=== PATIENT | female | born 1990 | race Caucasian/White ===

== ENCOUNTER 2017-05-10 14:57 | Emergency (ER) | payer BC, SELFPAY ==
[2017-05-10 15:17] VITALS: BP 127/93; PULSE 82; RESP 20; TEMP 37.2; O2SAT 98; BMI 33.2
--- NOTE | 2017-05-10 15:20 | HMH.EDUTC ---
[facility] [place] Impression: Left otitis media Qualifiers: Otitis media type: suppurative Chronicity: acute Recurrence: not specified as recurrent Spontaneous tympanic membrane rupture: without spontaneous rupture Qualified Code(s): H66.002 - Acute suppurative otitis media without spontaneous rupture of ear drum, left ear Disposition: Home, Self-Care Condition on Discharge: Good Instructions: DI for Otitis Media (Middle Ear Infection)-Child Prescriptions: Amoxicillin/Potassium Clav [Augmentin 875-125 Tablet] 1 tab PO Q12H 10 Days #20 tab Referrals: Leatha Davis APRN [Primary Care Provider] - Time of Disposition: 15:23 Medical Decision Making - Sree Inquiry Pt receiving controlled substance: No - Lab Data Lab results reviewed: Yes: I reviewed the patient's lab results. [facility] [place] General Stated complaint: Soar Throat; Cough; Fever Time Seen by Provider: 05/10/17 15:21 - History of Present Illness Provider Complaint: Sore throat, ear pain, sinus pain and pressure, productive cough X 3-4 days. No fever. No vomiting or diarrhea. Onset (ago): day(s) (4) Location: face Relieving factors: none Exacerbating factors: none Associated symptoms: cough Treatments prior to arrival: none - Related Data Previous Rx's Medication Instructions Recorded Amoxicillin/Potassium Clav 1 tab PO Q12H 10 Days #20 tab 05/10/17 [Augmentin 875-125 Tablet] Allergies Allergy/AdvReac Type Severity Reaction Status Date / Time No Known Drug Allergies Allergy Unknown Unverified 01/28/17 14:55 [NKDA] [facility] History I have reviewed the patient's past medical history: Yes ROS Obtained: Yes All systems reviewed & no additional complaints - Constitutional Constitutional: Denies body ache, Denies chills, Reports fatigue, Denies fever(s), Reports malaise - ENT Ears, Nose, Mouth, and Throat: Reports otalgia, Reports facial pain, Reports nasal congestion, Reports sinus pressure, Reports sore throat - Respiratory Respiratory: Yes cough Physical Exam - General General appearance: alert, in no apparent distress - Head Head exam: atraumatic, normocephalic, normal inspection - Eye Eye exam: Present: normal appearance, PERRL, EOMI - ENT ENT exam: Present: normal exam, normal oropharynx, mucous membranes moist, normal external ear exam - Expanded ENT Exam TM/Canal exam: Right TM: erythema, bulging Nose exam: Present: sinus tenderness Throat exam: Present: tonsillar erythema - Neck Neck exam: Present: normal inspection, full ROM, trachea midline. Absent: meningismus, lymphadenopathy - Chest Chest inspection: Present: normal inspection, symmetric chest wall rise. Absent: tenderness - Respiratory Respiratory exam: Present: normal lung sounds bilaterally. Absent: respiratory distress - Cardiovascular Cardiovascular exam: Present: regular rate, normal rhythm. Absent: JVD - Abdominal Exam Abdominal exam: Present: soft, normal bowel sounds. Absent: distention, tenderness, guarding - Extremities Exam Extremities exam: Present: normal inspection, full ROM, normal capillary refill. Absent: calf tenderness - Back Exam Back exam: Present: normal inspection. Absent: tenderness - Neurological Exam Neurological exam: Present: alert, oriented X3 - Psychiatric Psychiatric exam: Present: normal affect, normal mood - Skin Skin exam: Present: warm, dry, intact, normal color - Lymphatic Lymphatic Findings: no adenopathy
--- NOTE | 2017-05-10 15:24 | ED_ITS ---
[facility] [place] Clinical Impression: Left otitis media Qualifiers: Otitis media type: suppurative Chronicity: acute Recurrence: not specified as recurrent Spontaneous tympanic membrane rupture: without spontaneous rupture Qualified Code(s): H66.002 - Acute suppurative otitis media without spontaneous rupture of ear drum, left ear Disposition: Home, Self-Care Condition on Discharge: Good Instructions: DI for Otitis Media (Middle Ear Infection)-Child Prescriptions: Amoxicillin/Potassium Clav [Augmentin 875-125 Tablet] 1 tab PO Q12H 10 Days #20 tab Referrals: Leatha Davis APRN [Primary Care Provider] - Time of Disposition: 15:23 Medical Decision Making - Sree Inquiry Pt receiving controlled substance: No - Lab Data Lab results reviewed: Yes: I reviewed the patient's lab results. [facility] [place] - General Stated complaint: Soar Throat; Cough; Fever Time Seen by Provider: 05/10/17 15:21 - History of Present Illness Provider Complaint: Sore throat, ear pain, sinus pain and pressure, productive cough X 3-4 days. No fever. No vomiting or diarrhea. Onset (ago): day(s) (4) Location: face Relieving factors: none Exacerbating factors: none Associated symptoms: cough Treatments prior to arrival: none - Related Data Previous Rx's Medication Instructions Recorded Amoxicillin/Potassium Clav 1 tab PO Q12H 10 Days #20 tab 05/10/17 [Augmentin 875-125 Tablet] Allergies Allergy/AdvReac Type Severity Reaction Status Date / Time No Known Drug Allergies Allergy Unknown Unverified 01/28/17 14:55 [NKDA] [facility] History I have reviewed the patient's past medical history: Yes ROS Obtained: Yes All systems reviewed & no additional complaints - Constitutional Constitutional: Denies body ache, Denies chills, Reports fatigue, Denies fever(s ), Reports malaise - ENT Ears, Nose, Mouth, and Throat: Reports otalgia, Reports facial pain, Reports nasal congestion, Reports sinus pressure, Reports sore throat - Respiratory Respiratory: Yes cough Physical Exam - General General appearance: alert, in no apparent distress - Head Head exam: atraumatic, normocephalic, normal inspection - Eye Eye exam: Present: normal appearance, PERRL, EOMI - ENT ENT exam: Present: normal exam, normal oropharynx, mucous membranes moist, normal external ear exam - Expanded ENT Exam TM/Canal exam: Right TM: erythema, bulging Nose exam: Present: sinus tenderness Throat exam: Present: tonsillar erythema - Neck Neck exam: Present: normal inspection, full ROM, trachea midline. Absent: meningismus, lymphadenopathy - Chest Chest inspection: Present: normal inspection, symmetric chest wall rise. Absent : tenderness - Respiratory Respiratory exam: Present: normal lung sounds bilaterally. Absent: respiratory distress - Cardiovascular Cardiovascular exam: Present: regular rate, normal rhythm. Absent: JVD - Abdominal Exam Abdominal exam: Present: soft, normal bowel sounds. Absent: distention, tenderness, guarding - Extremities Exam Extremities exam: Present: normal inspection, full ROM, normal capillary refill. Absent: calf tenderness - Back Exam Back exam: Present: normal inspection. Absent: tenderness - Neurological Exam Neurological exam: Present: alert, oriented X3 - Psychiatric Psychiatric exam: Present: normal affect, normal mood - Skin Skin exam: Prese
[2017-05-10 15:30] LABS: UTC Strep Screen (Rapid) Negative (Negative)
[2017-05-10 15:41] VITALS: BP 122/85; PULSE 75; RESP 18; TEMP 37.3; O2SAT 100
== END 2017-05-10 15:42 | disposition home or self-care (01) ==
PROVIDERS: Emergency Provider Physician Assistant; Family Provider Nurse Practitioner Family; PCP Nurse Practitioner Family
DX: H66.002 Acute suppurative otitis media without spontaneous rupture of ear drum, left ear (principal)
CPT/HCPCS: 87880; 99201

== ENCOUNTER → 2017-08-28 07:32 | Outpatient (CLI) | payer BC, SELFPAY ==
--- NOTE | 2017-08-28 07:49 | US_ITS ---
US abdomen complete COMPARISON: None HISTORY: Right upper quadrant pain nausea and vomiting for 2 months TECHNIQUE: Ultrasound scanning of the upper abdomen FINDINGS: The pancreas appears normal. The liver is normal size and liver parenchyma appears normal. The gallbladder is markedly abnormal with a diffusely thickened wall and multiple too numerous to count calcified and partially calcified gallstones. This prominent acoustic shadowing beneath the gallbladder. The gallbladder wall measures point 0.42 to 0.62c m in thickness. Common bile duct is normal caliber. The spleen is normal. The right kidney measures 8.7 x 4.0 x 5.0 cm and appears sonographically normal. The left kidney measures 9.0 x 4.8 x 6.1 cm. Left kidney appears sonographically normal as well. IMPRESSION: Obvious cholelithiasis and there is likely some degree of acute and/or chronic cholecystitis. No other significant abnormality noted
[2017-08-28 08:05] LABS: Basophils # 0.1 K/mm3 (0-0.2); Basophils % 0.7 % (0.1-2.0); Eosinophils # 0.2 K/mm3 (0.0-0.4); Eosinophils % 2.2 % (0.1-12.0); Hematocrit 41.8 % (37.0-47.0); Lymphocytes # 3.7 K/mm3 (0.7-4.5); Lymphocytes % 43.6 K/mm3 (10-50); Mean Corpuscular Hemoglobin 25.2 pg (27.0-31.2); Mean Corpuscular Volume 81.4 fl (81-99); Mean Platelet Volume 7.7 fl (7.4-10.4); Monocytes # 0.4 K/mm3 (0.1-1.0); Monocytes % 5.1 % (1.7-9.3); Neutrophils # 4.1 K/mm3 (1.8-7.8); Neutrophils % 48.5 % (37.0-80.0); Platelet Count 430 K/mm3 (142-424); Red Blood Count 5.14 M/mm3 (4.20-5.40); Red Cell Distribution Width 14.9 % (11.5-17.5); White Blood Count 8.5 K/mm3 (4.8-10.8)
[2017-08-28 09:40] LABS: Alanine Aminotransferase 33 U/L (12-78); Albumin Level 3.7 gm/dL (3.4-5.0); Albumin/Globulin Ratio 1.1 (1.1-1.8); Alkaline Phosphatase 121 U/L (46-116); Amylase 35 U/L (25-125); Anion Gap 12.3 mEq/L (5-15); Aspartate Amino Transferase 16 U/L (15-37); Bilirubin,Total 0.3 mg/dL (0.2-1.0); Blood Urea Nitrogen 11 mg/dL (7-18); Calcium 9.3 mg/dL (8.5-10.1); Carbon Dioxide 26 mmol/L (21.0-32.0); Chloride 105 mmol/L (98-107); Creatinine,Serum 0.71 mg/dL (0.55-1.02); Estimated Glomerular Filt Rate 100 ml/min (>60); GFR (African American) 120 ML/MIN (>60); Globulin 3.5 gm/dl (1.3-3.2); Glucose 85 mg/dL (74-106); Lipase 143 u/L (73-393); Potassium 4.3 mmoL/L (3.5-5.1); Sodium 139 mmol/L (136-145); Total Protein,Serum 7.2 gm/dL (6.4-8.2)
== END ==
PROVIDERS: Family Provider Nurse Practitioner Family; PCP Nurse Practitioner Family; Visit Provider Nurse Practitioner Family
DX: R10.84 Generalized abdominal pain (principal)
CPT/HCPCS: 36415; 76700; 80053; 82150; 83690; 85025

== ENCOUNTER → 2017-09-25 14:16 | Outpatient (CLI) | payer BC, SELFPAY ==
[2017-09-25 15:22] LABS: HCG Qualitative, Serum Negative (Negative)
[2017-09-25 15:24] LABS: Alanine Aminotransferase 34 U/L (12-78); Albumin Level 3.4 gm/dL (3.4-5.0); Alkaline Phosphatase 114 U/L (46-116); Aspartate Amino Transferase 14 U/L (15-37); Bilirubin,Direct 0.1 mg/dL (0.0-0.2); Bilirubin,Indirect 0.1 mg/dL (0.0-0.9); Bilirubin,Total 0.2 mg/dL (0.2-1.0); Total Protein,Serum 6.7 gm/dL (6.4-8.2)
== END ==
PROVIDERS: Visit Provider Surgery
DX: Z01.818 Encounter for other preprocedural examination (principal); K80.10 Calculus of gallbladder with chronic cholecystitis without obstruction
CPT/HCPCS: 36415; 80076; 84703

== ENCOUNTER 2020-01-24 11:00 | Outpatient (RCR) | payer OTHER, SELFPAY | END 2020-01-26 12:00 | disposition home or self-care (01) | LOC: PT.CARL 11:00 | PROVIDERS: PCP Nurse Practitioner Family; Visit Provider Orthopaedic Surgery Foot and Ankle Surgery | DX: M25.571 Pain in right ankle and joints of right foot (principal) | CPT/HCPCS: 97010; 97014; 97110; 97112; 97116; 97140; 97163; 97164; G0283 ==

== ENCOUNTER → 2021-08-03 10:14 | Outpatient (CLI) | payer OTHER, SELFPAY ==
[2021-08-03 10:49] LABS: Basophils # 0.2 K/mm3 (0-0.2); Basophils % 2.3 % (0.1-2.0); Eosinophils # 0.1 K/mm3 (0.0-0.4); Eosinophils % 1.4 % (0.1-12.0); Hematocrit 39.2 % (37.0-47.0); Hemoglobin 12.5 g/dL (12.2-16.2); Lymphocytes # 3.3 K/mm3 (0.7-4.5); Lymphocytes % 35.7 % (10-50); Mean Corpuscular HGB Conc 31.8 g/dL (31.8-35.4); Mean Corpuscular Hemoglobin 25.6 pg (27.0-31.2); Mean Corpuscular Volume 80.5 fl (81-99); Mean Platelet Volume 8.1 fl (7.4-10.4); Monocytes # 0.4 K/mm3 (0.1-1.0); Monocytes % 4.7 % (1.7-9.3); Neutrophils # 5.2 K/mm3 (1.8-7.8); Neutrophils % 55.9 % (37.0-80.0); Platelet Count 578 K/mm3 (142-424); Red Blood Count 4.86 M/mm3 (4.20-5.40); White Blood Count 9.2 K/mm3 (4.8-10.8)
[2021-08-03 11:17] LABS: Alanine Aminotransferase 26 U/L (12-78); Albumin Level 4.2 g/dl (3.5-5.0); Albumin/Globulin Ratio 1.4 (1.1-1.8); Alkaline Phosphatase 154 U/L (38-126); Anion Gap 13.1 mEq/L (5-15); Aspartate Amino Transferase 28 U/L (14-36); Bilirubin,Total 0.3 mg/dl (0.2-1.3); Blood Urea Nitrogen 7 mg/dl (7-17); Calcium 9.5 mg/dl (8.4-10.2); Carbon Dioxide 24 mmol/L (22.0-30.0); Chloride 106 mmol/L (98-107); Cholesterol 274 mg/dl (140-200); Estimated Glomerular Filt Rate 98 ml/min (>60); GFR (African American) 119 ML/MIN (>60); Glucose 76 mg/dl (74-100); HDL Cholesterol 39 mg/dl (40-60); Potassium 4.1 mmoL/L (3.5-5.1); Sodium 139 mmol/L (136-145); Total Protein,Serum 7.2 g/dl (6.3-8.2); Triglycerides 224 mg/dl (30-150); VLDL Cholesterol 45 mg/dL (0-40)
[2021-08-03 11:34] LABS: 25-OH Vitamin D, Total 18.2 ng/mL (30-100)
[2021-08-03 11:50] LABS: Thyroid Stimulating Hormone 1.71 uIU/mL (0.465-4.68)
[2021-08-03 13:11] LABS: Hemoglobin A1C 5.3 % (4.0-6.0)
[2021-08-16 08:50] LABS: LDL-P 2050
[2021-08-16 08:52] LABS: LDL-C 181
[2021-08-16 08:53] LABS: Cholesterol, Total 259; HDL-C 39; Triglycerides 204
[2021-08-16 08:56] LABS: LDL Size 20.7
[2021-08-16 08:57] LABS: LP-IR Score 77
== END ==
PROVIDERS: PCP Nurse Practitioner Family; Visit Provider Nurse Practitioner Family
DX: E55.9 Vitamin D deficiency, unspecified (principal); Z79.899 Other long term (current) drug therapy; Z00.8 Encounter for other general examination
CPT/HCPCS: 36415; 80053; 80061; 82306; 83036; 83704; 84443; 85025

== ENCOUNTER 2022-03-06 18:53 | Emergency (ER) | payer OTHER, SELFPAY ==
[2022-03-06 19:05] VITALS: BP 131/78; PULSE 102; RESP 19; TEMP 37.3; O2SAT 99; BMI 39.8
--- NOTE | 2022-03-06 19:18 | EXP.UTC ---
Discharge Plan Disposition Patient Disposition: Home, Self-Care Condition: Good Prescriptions Prescriptions: New amoxicillin 875 mg tablet 875 mg PO BID Qty: 20 0RF No Action rizatriptan 10 MG tablet 10 mg PO DAILYP PRN (Reason: Migraine Headache) propranolol 60 MG tablet 60 mg PO DAILY Label Comments: TAKE 1 TABLET BY MOUTH EVERY DAY naproxen 500 MG tablet 500 mg PO DAILYP PRN (Reason: Migraine Headache) galcanezumab-gnlm 120 MG/ML pen injector 120 mg SQ MONTHLY Referrals Follow up/Referrals: Provider,Referral, MD [Primary Care Provider] - See instructions Activity Restrictions/Add. Instructions Additional Instructions/Restrictions: *Monitor Temp, Over the counter Motrin or Tylenol as directed/as needed Tylenol every 4 hours and Motrin every 6 hours (as long as your family doctor has told you that you can take it) for fever or pain. and straight to ER if unable to lower temp less than 101.0 after medication given *Warm salt water gargles may help to soothe the throat *Throat Lozenges? *Warm fluids like tea with honey may help to soothe the throat? *Sleep elevated *Humidifier/Vaporizer Your throat swab was sent for culture. Those results are typically sent to your primary care. Be sure to follow up in 2-3 days with your family doctor/primary care physician if no improvement so they can review those result and treat if necessary. If you don?t have a primary care doctor, I recommend you get one but in the mean time, you will have to return to a walk in clinic Follow up IMMEDIATELY for new or worsening symptoms or no Noticeable improvement over the next 48-72 hours. 911 for difficulty breathing or swallowing Clinical Impressions Clinical Impression: Left otitis media Stand Alone Forms Stand Alone Forms: Work/School Release Instructions Patient Instructions: Sore Throat, DI for Fever (Symptom) -- Adult Discharge ED Provider: Puja Jackson [facility] General Stated complaint: fever sore throat,cough Time Seen by Provider: 03/06/22 19:18 History of Present Illness Provider Complaint: Patient states that she has been having fever, sore throat, pain in her ears and cough States that today she has been having body aches and chills States that she felt like her throat was like razor blades and worried that she may have strep throat States that also needs a COVID test due to being sick before she can return to school Related Data Home Medications Medication Instructions Recorded Confirmed galcanezumab-gnlm 120 mg/mL 120 mg SQ MONTHLY MIGRAINE 10/13/18 10/13/18 subcutaneous pen injector naproxen 500 mg tablet 500 mg PO DAILYP PRN Migraine 10/13/18 10/13/18 Headache propranolol 60 mg tablet 60 mg PO DAILY MIGRAINE 10/13/18 10/13/18 rizatriptan 10 mg tablet 10 mg PO DAILYP PRN Migraine 10/13/18 10/13/18 Headache Previous Rx's Medication Instructions Recorded amoxicillin 875 mg tablet 875 mg PO BID #20 tabs 03/06/22 Allergies Allergy/AdvReac Type Severity Reaction Status Date / Time metoclopramide [From Reglan] Allergy lethargic, Verified 11/09/17 21:17 nausea, vomiting, resembles diabetic shock morphine Allergy Verified 10/13/18 18:42 [facility] Disclaimer: The information contained in this section may have been updated after the patient was seen, as this information can be updated by other users. Medical History (Updated 03/06/22 @ 19:22 by Puja Jackson APRN) Anxiety Depression Migraine Surgical History (Updated 03/06/22 @ 19:19 by Linda Kumar RN) History of appendectomy History of cholecystectomy Social History Smoking Status: Never smoker alcohol intake: never substance use type: denies use current occupational status: employed Travel in the last 8 weeks: None household members: significant other housing: house current occupation: factory worke
[2022-03-06 19:25] LABS: UTC Influenza A Antigen Negative (Negative); UTC Influenza B Antigen Negative (Negative); UTC Strep Screen (Rapid) Negative (Negative)
[2022-03-06 19:38] VITALS: BP 131/78; PULSE 102; RESP 19; TEMP 37.3; O2SAT 99
== END 2022-03-06 19:40 | disposition home or self-care (01) ==
PROVIDERS: Emergency Provider Nurse Practitioner
DX: U07.1 COVID-19 (principal); H66.92 Otitis media, unspecified, left ear
CPT/HCPCS: 87804; 87880; 99212; 99214; C9803; G0463; U0003; U0005

== ENCOUNTER → 2022-04-23 23:47 | Outpatient (CLI) | payer OTHER, SELFPAY ==
[2022-04-23 18:57] LABS: Basophils # 0.1 K/mm3 (0-0.2); Basophils % 1.2 % (0.1-2.0); Eosinophils # 0.2 K/mm3 (0.0-0.4); Eosinophils % 1.5 % (0.1-12.0); Hemoglobin 13.2 g/dL (12.2-16.2); Lymphocytes # 3.9 K/mm3 (0.7-4.5); Mean Corpuscular HGB Conc 32.9 g/dL (31.8-35.4); Mean Corpuscular Hemoglobin 24.6 pg (27.0-31.2); Mean Corpuscular Volume 74.8 fl (81-99); Mean Platelet Volume 8.6 fl (7.4-10.4); Monocytes # 0.6 K/mm3 (0.1-1.0); Monocytes % 5.1 % (1.7-9.3); Neutrophils # 6.6 K/mm3 (1.8-7.8); Neutrophils % 58.2 % (37.0-80.0); Platelet Count 653 K/mm3 (142-424); Red Blood Count 5.35 M/mm3 (4.20-5.40); Red Cell Distribution Width 17.6 % (11.5-17.5); White Blood Count 11.3 K/mm3 (4.8-10.8)
[2022-04-23 19:43] LABS: Thyroid Stimulating Hormone 2.36 uIU/mL (0.465-4.68)
[2022-04-25 10:12] LABS: Varicella Zoster IgG 2016 index (Immune >165)
== END ==
PROVIDERS: PCP Family Medicine; Visit Provider Family Medicine
DX: Z00.00 Encounter for general adult medical examination without abnormal findings (principal); Z83.49 Family history of other endocrine, nutritional and metabolic diseases; E55.9 Vitamin D deficiency, unspecified; Z79.899 Other long term (current) drug therapy
CPT/HCPCS: 82306; 84443; 85025; 86787

== ENCOUNTER → 2023-02-04 23:06 | Outpatient (CLI) | payer BC, OTHER, SELFPAY ==
[2023-02-04 17:05] LABS: Basophils # 0.1 K/mm3 (0-0.2); Eosinophils # 0.2 K/mm3 (0.0-0.4); Eosinophils % 2.2 % (0.1-12.0); Hematocrit 40.8 % (37.0-47.0); Hemoglobin 13.2 g/dL (12.2-16.2); Lymphocytes % 36.1 % (10-50); Mean Corpuscular HGB Conc 32.3 g/dL (31.8-35.4); Mean Corpuscular Hemoglobin 24.7 pg (27.0-31.2); Mean Corpuscular Volume 76.5 fl (81-99); Mean Platelet Volume 9.3 fl (7.4-10.4); Monocytes # 0.5 K/mm3 (0.1-1.0); Monocytes % 5.4 % (1.7-9.3); Neutrophils # 4.7 K/mm3 (1.8-7.8); Neutrophils % 55.3 % (37.0-80.0); Platelet Count 549 K/mm3 (142-424); Red Blood Count 5.34 M/mm3 (4.20-5.40); Red Cell Distribution Width 16.7 % (11.5-17.5); White Blood Count 8.4 K/mm3 (4.8-10.8)
[2023-02-04 17:47] LABS: HCG,Quantitative < 2 mIU/ml (0-5.42)
[2023-02-06 04:41] LABS: Progesterone 0.3 ng/mL (.)
== END ==
PROVIDERS: PCP Nurse Practitioner Family; Visit Provider Nurse Practitioner Family
DX: N93.9 Abnormal uterine and vaginal bleeding, unspecified (principal)
CPT/HCPCS: 84144; 84702; 85025

== ENCOUNTER 2023-12-07 09:43 | Emergency (ER) | payer BC, SELFPAY ==
[2023-12-07 09:49] VITALS: BP 149/108; PULSE 98; O2SAT 97
[2023-12-07 09:53] VITALS: BP 144/93; PULSE 101; O2SAT 97
[2023-12-07 10:00] VITALS: BP 144/93; PULSE 97; RESP 18; TEMP 36.9; O2SAT 98; BMI 39.4
--- NOTE | 2023-12-07 10:23 | HMH.EDGENADL ---
Discharge Plan Disposition Patient Disposition: Home, Self-Care Prescriptions Prescriptions: New norethindrone acetate 5 mg tablet 5 mg PO Q6H 1 Days Qty: 4 0RF nitrofurantoin monohyd/m-cryst [Macrobid] 100 mg capsule 100 mg PO BID 5 Days Qty: 10 0RF Rx Instructions: must administer with a meal/food No Action hydroxyzine HCl 50 mg tablet 50 mg PO ONCE Rx Instructions: taking half a tab clobetasol 0.05 % solution topical Patient Comments: Apply to scalp once daily for 14 days, stop for 7 days, repeat as needed. pseudoephedrine HCl [Sudafed 12 Hour] 120 mg tablet extended release 120 mg PO Q12H PRN (Reason: nasal congestion) Qty: 20 2RF prednisone 20 mg tablet 60 mg PO DAILY 3 Days Qty: 9 0RF amoxicillin-pot clavulanate 875-125 mg tablet 1 tab PO BID 10 Days Qty: 20 0RF albuterol sulfate 90 mcg/actuation HFA aerosol inhaler 2 inh inhalation QID PRN (Reason: shortness of breath or wheezing) Qty: 6.7 0RF phentermine [Adipex-P] 37.5 mg tablet 37.5 mg PO DAILY Qty: 30 3RF Rx Instructions: must administer 30 minutes before or 1-2 hours after breakfast sertraline 25 mg tablet 25 mg PO DAILY buspirone 5 mg tablet 5 mg PO DAILY Referrals Follow up/Referrals: Glenny Brar APRN [Primary Care Provider] - See instructions Activity Restrictions/Add. Instructions Additional Instructions/Restrictions: At this time it was felt you are safe to be discharged home. If new or worsening symptoms please do not hesitate to return the emergency department. Please take your norethindrone and antibiotics as prescribed and present to Dr. Lora's clinic tomorrow morning and tell them that she wanted you to be seen tomorrow morning for continued evaluation, if she wants to continue your norethindrone please tell her to refill your medication for as long as she sees fit. Clinical Impressions Clinical Impression: Abnormal uterine bleeding (AUB), UTI (urinary tract infection) Instructions Patient Instructions: DI for Urinary Tract Infection (UTI), DI for Urinary Tract Infection in Children Print Language Print Language: Niuean Discharge ED Provider: Patrick Merino General Adult HPI General Chief complaint: Urogenital-Female Stated complaint: poss ruptured ovarian cyst, pelvic pain Time Seen by Provider: 12/07/23 09:46 Mode of Arrival: Ambulatory Source of Information: Patient Limitations: No Limitations Description of Symptoms (Recalled from ER Triage Doc. by RN): pt states Friday she started having lower back pain. pt states she is having vaginal bleeding, N/V, and fever. pts LMP was 2wks ago. pt states she is having sharp 5/10 pelvic pain. pt reports it feels similar to a previous ovarian cyst rupture. pt reports she is bleeding through a super pad q30 minutes History of Present Illness HPI narrative: Patient is a 33-year-old female G0 who presents to the emergency department for evaluation of vaginal bleeding. Patient has a history of previous right-sided ovarian cyst which ruptured causing vaginal bleeding before however at that time multiple years ago it was only 2 tampons a day for a few days and subsided. Pending ending on Friday patient had lower back pain and vaginal bleeding and clots which has gotten progressively worse throughout the course. Patient has her period monthly, manage last menstrual cycle 2 weeks ago, lasting 5 to 7 days in duration using approximately 2 tampons per day. Originally on Friday she was using 2-3 pads throughout the course, on Friday use 6 and overnight was using a super heavy pad every 30 minutes to 1 hour with quarter size clots causing her to present here for continued evaluation. She has a low midline crampy pelvic pain, no chest pain. Past surgical history includes prior appendectomy and cholecystectomy. No other acute complaints at this time. No history of bleeding diathesis. Related Data Home Medications ?Medication ?Instructions ?Recorded ?Confirmed buspirone 5 mg tablet 5 mg PO DAILY anxiety 04/23/22 10/22/23 sertraline 25 mg tablet 25 mg PO DAILY depression/anxiety 04/23/22 10/22/23 hydroxyzine HCl 50 mg tablet 50 mg PO ONCE 02/04/23 10/22/23 clobetasol 0.05 % scalp solution topical 10/22/23 10/22/23 Previous Rx's ?Medication ?Instructions ?Recorded albuterol sulfate 90 mcg/actuation 2 inh inhalation QID PRN shortness 10/22/23 aerosol inhaler of breath or wheezing #6.7 grams amoxicillin 875 mg-potassium 1 tab PO BID 10 days #20 tabs 10/22/23 clavulanate 125 mg tablet phentermine 37.5 mg tablet 37.5 mg PO DAILY #30 tabs 10/22/23 (Adipex-P) prednisone 20 mg tablet 60 mg (3 x 20 mg) PO DAILY 3 days 10/22/23 #9 tabs pseudoephedrine HCl 120 mg 120 mg PO Q12H PRN nasal 10/22/23 tablet,extended release (Sudafed congestion #20 tabs 12 Hour) nitrofurantoin 100 mg PO BID UTI 5 days #10 caps 12/07/23 monohydrate/macrocrystals 100 mg capsule (Macrobid) norethindrone acetate 5 mg tablet 5 mg PO Q6H Uterine Bleeding 1 day 12/07/23 #4 tabs Allergies Allergy/AdvReac Type Severity Reaction Status Date / Time metoclopramide [From Reglan] Allergy lethargic, Verified 10/22/23 10:28 nausea, vomiting, resembles diabetic shock morphine Allergy Verified 10/22/23 10:28 [facility] Disclaimer: The information contained in this section may have been updated after the patient was seen, as this information can be updated by other users. Medical History Depression Anxiety Migraine Surgical History History of cholecystectomy History of appendectomy Family History Grandmother Diabetes Hyperlipidemia Hypertension Grandfather Stroke Hyperlipidemia Hypertension Heart attack Coronary artery disease Mother Hypertension Hyperlipidemia Social History Smoking Status: Never smoker alcohol intake: never substance use type: denies use current occupational status: student Travel in the last 8 weeks: None household members: significant other housing: house current occupation: food and drink factory workers current occupational exposures/hazards: No caffeine: Yes Other Medical History Have you received the Flu Vaccine for this season: No Have you received the Pneumonia Vaccine: No ROS Obtained: Yes Systems reviewed as appropriate & no additional complaints except as documented Physical Exam General General appearance: alert and in no apparent distress Head Head exam: atraumatic and normocephalic Eye Eye exam: Present PERRL and EOMI ENT ENT exam: Present mucous membranes moist Neck Neck exam: Present normal inspection Chest Chest inspection: Present normal inspection and symmetric chest wall rise Respiratory Respiratory exam: Absent respiratory distress Cardiovascular Cardiovascular exam: Present regular rate and normal rhythm Abdominal Exam Abdominal exam: Present soft and tenderness (Suprapubic); Absent rebound or rigidity Bimanual exam: Present other (Chain Forming Machine Operator present, pooling of blood in the posterior vaginal vault with small clots and active bleeding from the cervical os, no arterial hemorrhage.) Extremities Exam Extremities exam: Present normal inspection Neurological Exam Neurological exam: Present alert Psychiatric Psychiatric exam: Present normal affect Skin Skin exam: Present warm and dry Medical Decision Making Medical Records Screening: Per USPSTF and CDC recommendations, given the prevalence of disease in our region, it is our hospital?s policy to screen for HIV and viral Hepatitis for all patients aged 18 and over and those with ongoing risk factors. Sree Inquiry Pt receiving controlled substance: No Vital Signs: 12/07/23 09:49 12/07/23 09:53 12/07/23 10:00 Temperature 98.4 F Temperature Source Oral Pulse Rate 98 H 101 H Pulse Rate [Left] 97 H Respiratory Rate 18 Blood Pressure 149/108 H 144/93 H Blood Pressure [Right Arm] 144/93 H Blood Pressure Mean [Right Arm] 110 Blood Pressure Source [Right Arm] Automatic Cuff Blood Pressure Position [Right Arm] Sitting 02 Sat by Pulse Oximetry 97 97 98 Oxygen Delivery Method Room Air Room Air Room Air 12/07/23 11:01 12/07/23 11:31 Temperature Temperature Source Pulse Rate 84 78 Pulse Rate [Left] Respiratory Rate Blood Pressure 140/79 144/74 H Blood Pressure [Right Arm] Blood Pressure Mean [Right Arm] Blood Pressure Source [Right Arm] Blood Pressure Position [Right Arm] 02 Sat by Pulse Oximetry 99 97 Oxygen Delivery Method Room Air Room Air Lab Data Lab Results 12/07/23 09:08: Urine Color Yellow, Urine Appearance Clear, Urine pH 6.0, Ur Specific Reserve 1.025, Urine Protein 2+ A, Urine Glucose (UA) Negative, Urine Ketones Negative, Urine Blood 3+ A, Urine Nitrate Positive, Urine Bilirubin Negative, Urine Urobilinogen 1.0, Ur Leukocyte Esterase Negative, Urine RBC Tntc, Urine WBC None, Ur Squamous Epith Cells None 12/07/23 10:20: WBC 8.2, RBC 5.68 H, Hgb 13.5, Hct 42.8, MCV 75.4 L, MCH 23.8 L, MCHC 31.6 L, RDW 18.2 H, Plt Count 483 H, MPV 7.6, Neut % (Auto) 57.5, Lymph % (Auto) 34.6, [place] % (Auto) 4.6, Eos % (Auto) 1.4, Baso % (Auto) 1.8, Neut # (Auto) 4.7, Lymph # (Auto) 2.9, [place] # (Auto) 0.4, Eos # (Auto) 0.1, Baso # (Auto) 0.2, Sodium 139, Potassium 3.8, Chloride 107, Carbon Dioxide 24, BUN 9, Creatinine 0.70, Glucose 99, Calcium 9.0, Total Bilirubin 0.5, AST 31, ALT 24, Alkaline Phosphatase 110, Total Protein 7.6, Albumin 4.4, TSH 1.67, Serum HCG, Qual Negative 12/07/23 10:20 12/07/23 10:20 Orders (Tests/Meds): ED MEDICATIONS Discontinued Medications Generic Name Dose Route Start Last Admin Trade Name Freq PRN Reason Stop Dose Admin Acetaminophen 1,000 mg 12/07/23 10:29 12/07/23 10:39 Acetaminophen 1,000mg/100ml Vial IV 12/07/23 10:30 1,000 mg ONCE ONE Administration Lactated Ringer's 1,000 mls @ 999 mls/hr 12/07/23 10:29 12/07/23 10:39 Lactated Ringer's 1000 Ml Bag IV 12/07/23 11:29 999 mls/hr .Q1H1M ONE Administration ORDERS Category Date Time Status Type and Screen Stat BBK 12/07/23 10:20 Received CBC w/Auto Diff [Complete Blood Count Auto Diff] Stat Lab 12/07/23 10:20 Completed CMP [Comprehensive Metabolic Panel] Stat Lab 12/07/23 10:20 Results HCG Qualitative, Serum Stat Lab 12/07/23 10:20 Completed HIV (1&2) Antibody Rapid Stat Lab 12/07/23 10:20 Received Hep C Ab with Reflex to RNA Stat Lab 12/07/23 10:20 Received PT INR [Prothrombin Time INR] Stat Lab 12/07/23 10:20 Received PTT [Activated Partial Thrombo Time] Stat Lab 12/07/23 10:20 Received TSH [Thyroid Stimulating Hormone] Stat Lab 12/07/23 10:20 Results UA [Urinalysis and Microscopic] Stat Lab 12/07/23 09:08 Completed Medical Decision Narrative: In summary patient is a 33-year-old female G0 with past medical history described above who presents emergency department for evaluation of vaginal bleeding. Patient is hemodynamically stable nontoxic-appearing upon arrival, afebrile, borderline tachycardia. Differential includes various causes of abnormal uterine bleeding in the setting of nonpregnancy or . Workup will be conducted with hematologic labs, urinalysis, hCG. Initial interventions include crystalloid bolus, Tylenol. Initial workup reviewed by me, hematologic labs are nonactionable, hemoglobin 13.5, no SHIKHA or critical electrolyte abnormality, hCG negative. Patient had mild tachycardia which resolved with volume resuscitation. I do not think that patient has active hemorrhage to the point where inpatient management at this time would be beneficial and she certainly is not in any high class hemorrhagic shock. The case was discussed with Dr. Lora who agrees with this, imaging is not necessary in the emergency setting at this time. Urinalysis interpreted by me and consistent with nitrate positive infection without proteinuria and contamination from vaginal bleeding. Patient will be started on norethindrone protocol over the next few days as well as Macrobid and will follow-up with Dr. Lora in her clinic tomorrow morning for continued evaluation and was given return precautions and verbalized understanding. Critical Care Critical Care Time Critical Care Time: No
[2023-12-07] MEDS: ACETAMINOPHEN 1,000MG/100ML VIAL 1000 MG IV (10:39)
[2023-12-07] MEDS: LACTATED RINGERS 1000ML 1,000 ML 999 ML IV (10:39)
[2023-12-07 10:51] LABS: Basophils # 0.2 K/mm3 (0-0.2); Basophils % 1.8 % (0.1-2.0); Eosinophils # 0.1 K/mm3 (0.0-0.4); Eosinophils % 1.4 % (0.1-12.0); Hematocrit 42.8 % (37.0-47.0); Hemoglobin 13.5 g/dL (12.2-16.2); Lymphocytes # 2.9 K/mm3 (0.7-4.5); Lymphocytes % 34.6 % (10-50); Mean Corpuscular HGB Conc 31.6 g/dL (31.8-35.4); Mean Corpuscular Hemoglobin 23.8 pg (27.0-31.2); Mean Corpuscular Volume 75.4 fl (81-99); Mean Platelet Volume 7.6 fl (7.4-10.4); Monocytes # 0.4 K/mm3 (0.1-1.0); Monocytes % 4.6 % (1.7-9.3); Neutrophils # 4.7 K/mm3 (1.8-7.8); Neutrophils % 57.5 % (37.0-80.0); Platelet Count 483 K/mm3 (142-424); Red Blood Count 5.68 M/mm3 (4.20-5.40); Red Cell Distribution Width 18.2 % (11.5-17.5); White Blood Count 8.2 K/mm3 (4.8-10.8)
[2023-12-07 10:55] LABS: Microscopic, Urine URINE MICROSCOPIC (MICROSCOPIC)
[2023-12-07 10:56] LABS: Albumin Level 4.4 g/dl (3.5-5.0); Chloride 107 mmol/L (98-107); Potassium 3.8 mmoL/L (3.5-5.1); Sodium 139 mmol/L (136-145)
--- NOTE | 2023-12-07 10:56 | PC.NURSE ---
New red top blood tube collected and sent to LAB
[2023-12-07 10:59] LABS: Alanine Aminotransferase 24 U/L (12-78); Albumin/Globulin Ratio 1.4 (1.1-1.8); Alkaline Phosphatase 110 U/L (38-126); Anion Gap 11.8 mEq/L (5-15); Aspartate Amino Transferase 31 U/L (14-36); Bilirubin,Total 0.5 mg/dl (0.2-1.3); Blood Urea Nitrogen 9 mg/dl (7-17); Carbon Dioxide 24 mmol/L (22.0-30.0); Creatinine Clearance Estimated 165 mL/min (50-200); Estimated Glomerular Filt Rate 96 ml/min (>60); GFR (African American) 117 ML/MIN (>60); Globulin 3.2 g/dL (1.3-3.2); Total Protein,Serum 7.6 g/dl (6.3-8.2)
[2023-12-07 11:00] LABS: Glucose 99 mg/dl (74-100)
[2023-12-07 11:01] VITALS: BP 140/79; PULSE 84; O2SAT 99
[2023-12-07 11:23] LABS: HCG Qualitative, Serum Negative (Negative)
[2023-12-07 11:29] LABS: Appearance,Urine CLEAR (Clear); Bilirubin,Urine Negative (Negative); Blood, Urine 3+ (Negative); Color,Urine YELLOW (Yellow); Glucose,Urine (UA) Negative (Negative); Ketones,Urine Negative (Negative); Leukocyte Esterase,Urine Negative (Negative); Nitrate,Urine POSITIVE (Negative); Protein,Urine 2+ (Negative); Specific Gravity, Urine 1.025 (1.005-1.030)
[2023-12-07 11:30] LABS: Thyroid Stimulating Hormone 1.67 uIU/mL (0.465-4.68)
[2023-12-07 11:31] VITALS: BP 144/74; PULSE 78; O2SAT 97
--- NOTE | 2023-12-07 11:51 | PC.NURSE ---
call made to lab for ETA on UA results, 5 minutes per maricruz in lab
[2023-12-07 11:53] LABS: RBC,Urine TNTC #/hpf (0-3)
[2023-12-07 12:02] VITALS: BP 144/71; PULSE 82; RESP 18; TEMP 36.9
[2023-12-07 12:41] LABS: Activated Partial Thrombo Time 29.8 seconds (22.8-30.6); INR 0.91 (0.9-1.1); Prothrombin Time 10.3 seconds (10.1-12.5)
[2023-12-07 13:56] LABS: HIV (1&2) Antibody Rapid NONREACTIVE (NONREACTIVE)
[2023-12-09 05:10] LABS: HCV Ab Non Reactive (Non Reactive)
== END 2023-12-07 12:06 | disposition home or self-care (01) ==
PROVIDERS: Emergency Provider Emergency Medicine; PCP Nurse Practitioner Family
DX: N93.9 Abnormal uterine and vaginal bleeding, unspecified (principal); N39.0 Urinary tract infection, site not specified; M54.50 Low back pain, unspecified; R50.9 Fever, unspecified; R11.2 Nausea with vomiting, unspecified
CPT/HCPCS: 80050; 80053; 81001; 84443; 84703; 85025; 85610; 85730; 86803; 86850; 87389; 96361; 96374; 99283; J0131; J7120

== ENCOUNTER 2023-12-17 10:44 | Outpatient (CLI) | payer BC, SELFPAY ==
--- NOTE | 2023-12-17 10:45 | US_ITS ---
PROCEDURE: US TRANSVAGINAL CLINICAL INDICATION: Pelvic Pain and AUB COMPARISON: US [facility] US abdomen complete from 08/28/2017 FINDINGS: Transvaginal sonographic images of the pelvis were obtained. UTERUS: 6.4cm x 4.0cmx 3.5cm anteverted with a combined endometrial thickness of 5.1mm. LEFT OVARY: 3.9 cmx2.1cmx2.2cm with a volume of 9.4ml. There are multiple small peripheral follicles consistent with a polycystic ovary. RIGHT OVARY: 3.5cmx 1.7 cm x1.8 cm with a volume of 5.4ml. There are multiple small peripheral follicles consistent with a polycystic ovary. Both ovaries are seen and appear polycystic. Doppler flow to both ovaries are seen. There is no fluid in the cul-de-sac. IMPRESSION: 1. Anteverted uterus normal in shape and size. The endometrium is thin. 2. Both ovaries are seen and appear polycystic. 3. No fluid in the cul-de-sac Dictated by: David Faith MD 12/17/2023 11:23 David Faith MD in [place] 12/17/2023 11:23
== END 2023-12-17 23:59 | disposition home or self-care (01) ==
LOC: RAD 10:45
PROVIDERS: PCP Nurse Practitioner Family; Visit Provider Obstetrics & Gynecology
DX: R10.2 Pelvic and perineal pain (principal); N93.9 Abnormal uterine and vaginal bleeding, unspecified
CPT/HCPCS: 76830